=== PATIENT | male | born 1960 | race Caucasian/White ===

== ENCOUNTER 2018-08-22 18:36 | Inpatient (IN) | payer MEDICARE ==
[~2018-08-22] VITALS: Ht 180.3 cm; Wt 112.1 kg
--- NOTE | ~2018-08-22 | EKG ---
[place], [place] ELECTROCARDIOGRAM REPORT NAME: LINDA MARISCAL UNIT #: [id number] ROOM: 402 DOCTOR: HEMANT DRAFT REPORT BIRTHDATE: [birth year] [facility] Test Date: 2018-08-22 Test Time: 20:52:58 Pat Name: LINDA MARISCAL Department: Room: 402 2 Gender: M Nutrition Educator: : 1960 Requested By: CHRISTIANO ORTEGA Order Number: [id number] Reading MD: Quique Smith MD Measurements Intervals [place] Rate: 76 P: 68 AK: 166 QRS: 48 QRSD: 103 T: 50 QT: 397 QTc: 446 Interpretive Statements Sinus rhythm Borderline low voltage, extremity leads Electronically Signed On 08-23-2018 4:12:31 PST by Quique Smith MD CM:EKGRPT:ELECTROCARDIOGRAM REPORT 51 [id number] CHRISTIANO ORTEGA EPIPHANY DRAFT REPORT CHRISTIANO ORTEGA
--- NOTE | ~2018-08-22 | CON ---
[place], [place] REPORT OF CONSULTATION NAME: LINDA MARISCAL UNIT #: [id number] ROOM: 422 DOCTOR: PHD ROHITH DIANA BIRTHDATE: [birth year] DOS: 08/25/2018 HISTORY OF PRESENT ILLNESS: The patient is a 58-year-old male referred by the hospitalist with concerns for altered mental status. The patient is presently on the 4th floor at [facility]. He came to the hospital because he wishes to stop drinking. He was brought by his nurse case manager, Carole, from [facility]. He has been drinking up to 12 beers a day since he was 16. He lives alone and is single and does not have any kids. 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 He drinks about 12 beers per day and smokes half a pack of cigarettes a day and smokes marijuana every few days. PAST MEDICAL HISTORY: Alcoholic cirrhosis, depression, diabetes mellitus, essential hypertension, GERD, hepatitis C, insomnia, Korsakoff syndrome, mild protein-calorie malnutrition, alcohol abuse, tobacco abuse, cannabis abuse. MEDICATIONS: Ativan, Glucophage, Desyrel, Seroquel, Lovenox, Norvasc, Toprol-XL, Cephulac, Abilify, Zoloft, folic acid, thiamine, Theragran, Protonix, Desyrel, Nicotrol inhaler, Zofran, Maalox, Dulcolax, Senokot, Imodium, Motrin, Tylenol, Vistaril, Bentyl, Robaxin, Ativan. The patient was awake, alert and oriented to person. He knew he was in a hospital, but did not know the city. He gave the date as 09/1998. He named Quynh as the current President, Martinez as the prior president and could not name any current events. Mood was stable and affect was blunted. He denied suicidal and homicidal ideation, plan and intent. Speech was slow. Expressive and receptive language appeared within normal limits on the conversational basis. The patient was confused. He was responding to unseen others. Insight and judgment were poor. The patient had trouble recalling recent and remote events. He states that he does want to pursue inpatient alcohol rehab and that he follows up closely with [facility]. I attempted to contact his nurse case manager and the nurse who works with his psychiatrist, but was unable to get in touch with anybody to establish his baseline functioning. In my opinion, the patient would benefit from inpatient alcohol rehab should his mental status improve. Otherwise, he may benefit from increased supervision in a detention facility. DIAGNOSES: Alcohol withdrawal, cannabis use disorder, tobacco use disorder, unspecified depressive disorder, unspecified anxiety disorder. RECOMMENDATIONS: Inpatient alcohol treatment once the patient is medically stable and pending improved mental status. Should his mental status not improve, he would likely benefit from increased supervision and care in a detention facility. Thank you very much for this consult. [place], [place] REPORT OF CONSULTATION NAME: LINDA MARISCAL UNIT #: [id number] ROOM: 422 DOCTOR: ROHITH PHD DIANA BIRTHDATE: [birth year] Prerna Morrison, PhD CM:CONSTR:REPORT OF CONSULTATION 1640 08/26/18 1401 interface
[2018-08-22 18:39] VITALS: BP 154/78
[2018-08-22 18:56] LABS: BASO % 0.6 % (0.0-1.0); EOS # 0.1 10*3/uL (0.0-0.4); EOS % 2.9 % (1.0-4.0); HEMOGLOBIN 12.2 g/dl (14.0-18.0); LYMPH # 1.9 10*3/uL (1.3-4.4); LYMPH % 38.8 % (27.0-41.0); MEAN CELL VOLUME 88.2 fl (80.0-94.0); MEAN CORPUSCULAR HGB 28.3 pg (27.0-31.0); MEAN CORPUSCULAR HGB CONC 32.1 g/dl (33.0-37.0); MEAN PLATELET VOLUME 9.7 fl (9.6-12.3); MONO # 0.5 10*3/uL (0.1-1.0); NEUT # 2.3 10*3/uL (2.3-7.9); NEUT % 47.3 % (47.0-73.0); PLATELET COUNT AUTOMATED 127 10*3/uL (130-400); RED BLOOD COUNT 4.31 10*6/uL (4.50-5.90); RED CELL DISTRI WIDTH 15.8 % (0-14.5); WHITE BLOOD COUNT 4.8 10*3/uL (4.8-10.8)
[2018-08-22 19:10] LABS: ALBUMIN 3.1 gm/dl (3.1-4.5); ALKALINE PHOSPHATASE 88 U/L (45-117); BUN 14 mg/dl (7-24); CHLORIDE 105 mmol/L (98-107); CREATININE 1.12 mg/dL (0.70-1.30); POTASSIUM 3.7 mmol/L (3.5-5.1); SGOT/AST 76 IU/L (3-35); SGPT/ALT 45 U/L (12-78); SODIUM 138 mmol/L (136-145); TOTAL PROTEIN 8.2 gm/dL (6.4-8.2)
[2018-08-22 19:12] LABS: ACETAMINOPHEN (TYLENOL) < 5.0 ug/ml (10-30)
[2018-08-22 19:22] LABS: BILIRUBIN NEGATIVE (NEGATIVE); BLOOD 1+ (NEGATIVE); CLARITY CLEAR (CLEAR); COLOR YELLOW (YELLOW); GLUCOSE NEGATIVE (NEGATIVE); KETONE NEGATIVE (NEGATIVE); LEUKO ESTERASE NEGATIVE (NEGATIVE); NITRITE NEGATIVE (NEGATIVE); SPECIFIC GRAVITY <= 1.005 (1.005-1.030); UROBILINOGEN 0.2 E.U./dl (0.2-1.0)
[2018-08-22 19:30] VITALS: BP 133/79
[2018-08-22 19:30] LABS: URINE AMPHETAMINES < 1000 (1000ng/ml); URINE BARBITURATES < 200 (200ng/ml); URINE BENZODIAZEPINES < 200 (200ng/ml); URINE CANNABINOIDS (THC) > 50 (50ng/ml); URINE COCAINE < 300 (300ng/ml); URINE METHADONE < 300 (300ng/ml); URINE OPIATES < 300 (300ng/ml); URINE PHENCYCLIDINE < 25 (25ng/ml)
[2018-08-22 19:33] LABS: BACTERIA TRACE; WBC 0-2 wbc/hpf (0-5)
[2018-08-22 20:00] VITALS: BP 125/88
--- NOTE | 2018-08-22 20:34 | NUR ---
A 58, admitted to , under the services of AMBROSIO Jacobs DO with a diagnosis of ETOH ABUSE. Chief complaint is NAUSEA AND ANXIETY. Patient arrived via bed from ER. Monitor applied. Initial assessment completed. Vital signs taken and recorded. AMBROSIO JACOBS DO notified of admission to the unit. Orders received. See assessment for past medical history, medications and allergies. Patient and/or family oriented to unit. [facility] visitation policy reviewed. Clothing/patient valuable form completed. VIRGINIA MONDRAGON
[2018-08-22] MEDS ORDERED: GLUCOPHAGE500 M1 PO (23:28)
[2018-08-22] MEDS ORDERED: NALTREXONE50 MG PO (23:29)
[2018-08-22] MEDS ORDERED: ZOLOFT50 MG PO (23:30)
[2018-08-22] MEDS ORDERED: ZOLOFT100 MG PO (23:30)
[2018-08-22] MEDS ORDERED: SEROQUEL400 M1 PO (23:31)
[2018-08-22] MEDS ORDERED: ABILIFY5 MG PO (23:31)
[2018-08-22] MEDS ORDERED: TRAZODONE100 MG PO (23:33)
[2018-08-22] MEDS ORDERED: CONSTULOSE10 GM/151 PO (23:34)
[2018-08-22] MEDS ORDERED: METOPROLOL SUCC50 M1 PO (23:35)
[2018-08-22] MEDS ORDERED: AMLODIPINE BESY10 MG PO (23:36)
[2018-08-22] MEDS ORDERED: PANTOPRAZOLE SO40 MG PO (23:37)
[2018-08-23] VITALS: BP 139/85
[2018-08-23 06:44] LABS: ALBUMIN 2.7 gm/dl (3.1-4.5); ALKALINE PHOSPHATASE 69 U/L (45-117); BUN 13 mg/dl (7-24); CHLORIDE 111 mmol/L (98-107); CREATININE 0.94 mg/dL (0.70-1.30); POTASSIUM 3.9 mmol/L (3.5-5.1); SGOT/AST 57 IU/L (3-35); SGPT/ALT 37 U/L (12-78); SODIUM 141 mmol/L (136-145); TOTAL PROTEIN 6.9 gm/dL (6.4-8.2)
[2018-08-23 06:47] LABS: ACT PARTIAL THROMBO TIME 26.4 SECONDS (20.8-31.5); INTERNATIONAL NORM RATIO 1.1 (2.0-3.5)
--- NOTE | 2018-08-23 07:07 | NUR ---
ATIVAN IV GIVEN FOR DT'S. WILL MONITOR
[2018-08-23 08:00] VITALS: BP 142/82
[2018-08-23 12:00] VITALS: BP 112/55
[2018-08-23 16:00] VITALS: BP 114/56
--- NOTE | 2018-08-23 16:22 | NUR ---
[facility] IN TO FOLLOW UP WITH PATIENT ON REFERRAL OPTIONS. PATIENT ASLEEP AND HARD TO WAKE. [facility] WILL FOLLOW UP WITH PATIENT LATER. LILIAN MEYERS MS REGULATOR PIN INSERTER
--- NOTE | 2018-08-23 18:00 | NUR ---
Patient resting. Responding to scheduled medications with fewer complaints of pain and anxiety.
[2018-08-23 20:00] VITALS: BP 158/94
[2018-08-24] VITALS: BP 146/87
--- NOTE | 2018-08-24 02:45 | NUR ---
MOTRIN GIVEN FOR 8 OUT OF 10 PAIN IN NECK. WILL CONTINUE TO MONITOR AND REASSESS.
--- NOTE | 2018-08-24 03:11 | NUR ---
24 HR chart check completed.
--- NOTE | 2018-08-24 03:30 | NUR ---
MOTRIN EFFECTIVE FOR NECK PAIN. PT SLEEPING COMFORTABLY.
[2018-08-24 08:00] VITALS: BP 140/80
--- NOTE | 2018-08-24 10:23 | NUR ---
C/o anxiety and tremors. Requesting ativan given IV per prn order.
[2018-08-24 12:00] VITALS: BP 152/83
--- NOTE | 2018-08-24 15:12 | NUR ---
PATIENT MEETS [facility]. PATIENT IS GOING TO FOLLOW UP WITH AA MEETINGS. [place] STAFF WILL PROVIDE PATIENT WITH A LIST OF MEETINGS IN HIS AREA. WINNIE MCKEON B.A. [place]
[2018-08-24 16:00] VITALS: BP 140/83
[2018-08-24 20:00] VITALS: BP 133/72
[2018-08-25 06:19] LABS: BASO % 0.4 % (0.0-1.0); EOS # 0.1 10*3/uL (0.0-0.4); EOS % 2.2 % (1.0-4.0); HEMATOCRIT 39.7 % (42.0-52.0); HEMOGLOBIN 12.5 g/dl (14.0-18.0); LYMPH # 1.2 10*3/uL (1.3-4.4); LYMPH % 25.8 % (27.0-41.0); MEAN CORPUSCULAR HGB 27.7 pg (27.0-31.0); MEAN CORPUSCULAR HGB CONC 31.5 g/dl (33.0-37.0); MEAN PLATELET VOLUME 9.6 fl (9.6-12.3); MONO # 0.6 10*3/uL (0.1-1.0); MONO % 12.8 % (3.0-9.0); NEUT # 2.7 10*3/uL (2.3-7.9); NEUT % 58.6 % (47.0-73.0); PLATELET COUNT AUTOMATED 113 10*3/uL (130-400); RED BLOOD COUNT 4.51 10*6/uL (4.50-5.90); RED CELL DISTRI WIDTH 15.9 % (0-14.5); WHITE BLOOD COUNT 4.6 10*3/uL (4.8-10.8)
[2018-08-25 06:44] LABS: CREATININE 0.98 mg/dL (0.70-1.30)
[2018-08-25 07:40] VITALS: BP 110/70
--- NOTE | 2018-08-25 10:35 | NUR ---
Pt up and ambulated in parker at this time. Pt unsteady and instructed to hold onto hand rail on wall. I was on other side of pt to steady him. Ambulated the length of the parker and then back to his room. Pt set up in chair with body alarm intact after walk.
--- NOTE | 2018-08-25 10:45 | NUR ---
Pt was found by staff when they brought ER adm to room 404-2, in room 404-1 laying on bed.
--- NOTE | 2018-08-25 10:50 | NUR ---
Izzy states she will notify physican of pt being found in another room and wandering. I notified Izzy that pt has been hallucinating and has been attempting to get up frequently and that I had walked him and sat him up in the chair with body alarm. Pt had set off body alarm multiple times and this is why I walked him in the parker. Pt also had ativan prior. Notified Izzy that I had asked to move pt closer to nurses station but there were no rooms available for pt.
--- NOTE | 2018-08-25 10:53 | NUR ---
Izzy states she is calling Jaclyn Acevedo regarding pt.
--- NOTE | 2018-08-25 11:19 | NUR ---
Spoke with Zo on U regarding consult.
--- NOTE | 2018-08-25 13:38 | NUR ---
Body alarm going off. Upon entering room, pt is found to be sitting on edge of bed urinating into lid from dinner tray.
[2018-08-25 16:00] VITALS: BP 155/86
--- NOTE | 2018-08-25 16:12 | NUR ---
HUSSEIN JOVEL DISCUSSED AFTERCARE INPATIENT REFERRAL OPTIONS WITH THE PATIENT. PATIENT REPORTS BEING KICKED OUT OF ALL THE REHABS MENTIONED AND BEING PLACED ON "DO NOT READMITT LIST". PATIENT WAS ALSO SEEN POURING A SMALL AMOUNT OF URINE FROM HIS URINAL INTO THE BOWL WITH HIS DENTURES. [facility] STAFF CLEANED THE BOWL AND INFORMED PATIENT THAT THE CONTAINER HE WAS USING WAS NOT WATER. HUSSEIN JOVEL WILL FOLLOW UP WITH PATIENT. LILIAN MEYERS MS COIN MACHINE SUPERVISOR
--- NOTE | 2018-08-25 18:53 | NUR ---
Pt requesting ativan for anxiety. Medicated at this time per prn order.
[2018-08-25 20:00] VITALS: BP 153/90
[2018-08-26] VITALS: BP 148/80
[2018-08-26 06:00] LABS: BASO % 0.4 % (0.0-1.0); EOS # 0.1 10*3/uL (0.0-0.4); EOS % 2.1 % (1.0-4.0); HEMATOCRIT 39.4 % (42.0-52.0); HEMOGLOBIN 12.5 g/dl (14.0-18.0); LYMPH # 1.8 10*3/uL (1.3-4.4); MEAN CELL VOLUME 87.4 fl (80.0-94.0); MEAN CORPUSCULAR HGB 27.7 pg (27.0-31.0); MEAN CORPUSCULAR HGB CONC 31.7 g/dl (33.0-37.0); MEAN PLATELET VOLUME 9.4 fl (9.6-12.3); MONO # 0.7 10*3/uL (0.1-1.0); MONO % 13.8 % (3.0-9.0); NEUT # 2.5 10*3/uL (2.3-7.9); NEUT % 49.5 % (47.0-73.0); PLATELET COUNT AUTOMATED 110 10*3/uL (130-400); RED BLOOD COUNT 4.51 10*6/uL (4.50-5.90); RED CELL DISTRI WIDTH 15.8 % (0-14.5); WHITE BLOOD COUNT 5.1 10*3/uL (4.8-10.8)
[2018-08-26 06:16] LABS: ALBUMIN 2.9 gm/dl (3.1-4.5); ALKALINE PHOSPHATASE 71 U/L (45-117); BUN 12 mg/dl (7-24); CHLORIDE 106 mmol/L (98-107); PHOSPHOROUS 3.4 mg/dL (2.5-4.9); POTASSIUM 3.4 mmol/L (3.5-5.1); SGOT/AST 42 IU/L (3-35); SGPT/ALT 33 U/L (12-78); SODIUM 141 mmol/L (136-145); TOTAL PROTEIN 7.3 gm/dL (6.4-8.2)
--- NOTE | 2018-08-26 07:28 | NUR ---
NOTIFIED DR. SEGOVIA OF CRITICAL LAB VALUE.
[2018-08-26 08:00] VITALS: BP 148/86
--- NOTE | 2018-08-26 08:19 | NUR ---
PATIENT IS PLEASANT AND COOPERATIVE, UNSURE OF WHERE HE IS AT THIS CURRENT TIME BUT IS AWARE OF THE YEAR AND WHO THE PRESIDENT IS. COMPLAINS OF NO PAIN AT THIS CURRENT TIME. WILL CONTINUE TO MONITOR PATIENT THROUGHOUT THE DAY. REGIS CARR
[2018-08-26] MEDS ORDERED: LACTULOSE20 GM/30 M PO (10:59)
--- NOTE | 2018-08-26 11:05 | NUR ---
ADMINISTERED MEDICATIONS, PATIENT TOLERATED WELL. NO COMPLAINTS AT THIS TIME. WILL CONTINUE TO MOITOR PATIENT. REGIS GIVENS SPLEIGHANN
[2018-08-26 12:00] VITALS: BP 154/85
--- NOTE | 2018-08-26 13:14 | NUR ---
IV REMOVED, PATIENT COMPLAINS OF NO PAIN, PATIENT TOLERATED WELL. WITH NO COMPLAINTS AT THIS TIME. REGIS GIVENS SPCC
--- NOTE | 2018-08-26 14:40 | NUR ---
PHYSICAL THERAPY PAtient with possible d/c this date. Beulah Kim,PT
--- NOTE | 2018-08-26 14:43 | NUR ---
Patient may be discharged today. Juli Lindsay OTR/l
--- NOTE | 2018-08-26 14:52 | NUR ---
MSDIS Discharge instructions reviewed with patient/family. Patient receptive and verbalizes understanding. Follow-up care arranged. Written instructions given to patient/family. SHIREEN BARRON
[2018-08-26] MEDS ORDERED: NATURE'S BLEND100 M2 PO (16:53)
[2018-08-26] MEDS ORDERED: MULTIVITAMINS1 EAC5 PO (16:54)
[2018-08-26] MEDS ORDERED: NATURE'S BLEND F1 MG PO (16:54)
== END 2018-08-26 14:52 | disposition home health service (06) | DRG 896 ==
LOC: ED 18:36 → 4E 19:19 → EDHOLD 19:19 → 4E 19:41
PROVIDERS: Internal Medicine; Nurse Practitioner Family; ADMIT Internal Medicine
DX: F10.230 Alcohol dependence with withdrawal, uncomplicated (principal); E43 Unspecified severe protein-calorie malnutrition; E87.2 Acidosis; E11.65 Type 2 diabetes mellitus with hyperglycemia; F32.9 Major depressive disorder, single episode, unspecified; B18.2 Chronic viral hepatitis C; K70.30 Alcoholic cirrhosis of liver without ascites; F04 Amnestic disorder due to known physiological condition; D69.6 Thrombocytopenia, unspecified; D64.9 Anemia, unspecified; R80.9 Proteinuria, unspecified; R31.21 Asymptomatic microscopic hematuria; F17.210 Nicotine dependence, cigarettes, uncomplicated; F12.90 Cannabis use, unspecified, uncomplicated; F41.9 Anxiety disorder, unspecified; E87.8 Other disorders of electrolyte and fluid balance, not elsewhere classified; F10.229 Alcohol dependence with intoxication, unspecified; I10 Essential (primary) hypertension; K21.9 Gastro-esophageal reflux disease without esophagitis; G47.00 Insomnia, unspecified; E66.9 Obesity, unspecified; Z71.6 Tobacco abuse counseling; Z82.3 Family history of stroke; Z80.9 Family history of malignant neoplasm, unspecified; Z79.899 Other long term (current) drug therapy; Z68.34 Body mass index [BMI] 34.0-34.9, adult

== ENCOUNTER 2018-08-26 14:41 | Inpatient (IN) | payer MEDICARE ==
[~2018-08-26] VITALS: Ht 180.3 cm; Wt 112.0 kg
--- NOTE | ~2018-08-26 | PR ---
[place], [place] PROGRESS NOTE NAME: LINDA MARISCAL UNIT #: [id number] ROOM: 315 DOCTOR: ELIZABETH GROSSMAN MD BIRTHDATE: [birth year] DOS: 08/30/2018 CHIEF COMPLAINT: "I feel better today than yesterday. I am not throwing up and I do not have diarrhea." SUMMARY OF THE VISIT: The patient was interviewed as he was resting quietly in bed. He engaged readily in conversation, reporting that he is feeling better both physically and mentally. He is very much set on leaving the hospital and going back to his own apartment. However, Dr. Prerna Morrison, psychologist did deem him incompetent and the patient's own case repairer does fear for his safety because of his significant memory issues and poor judgment. He is impulsive and forgetful, which makes a very bad combination for him living independently. MENTAL STATUS: He is alert and oriented with time gaps. Mood does seem to be trending towards euthymia. Affect is more appropriate. There is no monica, hypomania or psychosis. Memory comes and goes and is spotty. PLAN: I will go ahead and start him on Exelon patch 4.6 mg a day to impact positively on ADLs, behavior and cognition. I will increase his Zyprexa to 5 mg in the morning and 10 mg at night to stabilize his mood, decrease impulsivity and augment the effectiveness of the antidepressant. We will continue to engage in individual and salas milieu activity, returning to the least restrictive environment when psychiatrically stable. ELIZABETH GROSSMAN MD CM:PNTRANS [id number] ELIZABETH GROSSMAN MD 08/30/18 1350 interface
--- NOTE | ~2018-08-26 | DS ---
[place], [place] DISCHARGE SUMMARY NAME: LINDA MARISCAL UNIT #: [id number] ROOM: 315 DOCTOR: ELIZABETH GROSSMAN MD BIRTHDATE: [birth year] DOS: 08/31/2018 CHIEF COMPLAINT: "Hey, I need to speak to you." HISTORY OF PRESENT ILLNESS: This is a 58-year-old white male who was initially admitted to the Medical Unit at [facility]. While there, they found him to be cognitively impaired and also very bizarre. He would wander in and out of other patient's rooms while on the medical floor and was difficult to redirect. They had had caught him urinating in his denture cup and doing other very bizarre behaviors. Because of the severity of his actions and his significant decompensation, it was felt that an inpatient psych stabilization was warranted. SUMMARY OF HOSPITAL COURSE: The patient was admitted to the unit where his ammonia level was found to be markedly elevated. His previous medication regimen that included Seroquel 400 mg a day, Abilify 5 mg a day, trazodone 200 mg at bedtime and Zoloft 150 mg a day was all discontinued due to ineffectiveness. Instead, he was started on Exelon patch 4.6 mg a day to impact positively on his cognition, Remeron 15 mg at bedtime for depression. This was augmented with Zyprexa 10 mg at bedtime and subsequently 5 mg in the morning and 10 mg at bedtime. With this combination of medication, he rapidly improved, mood improved dramatically. He voiced a clearing of his thoughts and was able to carry on a reasonable conversation. He no longer was disoriented. He slept well, he ate well and he attended to his ADLs without any issue. He had improved sufficiently to return back home to continue under the care of [facility] services. MENTAL STATUS AT DISCHARGE: The patient is alert and oriented with some time gaps, but definitely improved. Mood was strongly trending towards euthymia. Affect appropriate. There was no monica, hypomania or psychosis. Short term memory had mild gaps, otherwise he was intact. DISPOSITION: The patient is returning home. His caser up from [facility] is coming to pick him up. His prescriptions have been printed. He will be under the care of [facility] at the time of discharge. At the time of discharge, he was psychiatrically stable and no acute medical issues were present. [place], [place] DISCHARGE SUMMARY NAME: LINDA MARISCAL UNIT #: [id number] ROOM: [facility] DOCTOR: ELIZABETH GROSSMAN MD BIRTHDATE: [birth year] ELIZABETH GROSSMAN MD CM:DISCHARG [id number] ELIZABETH GROSSMAN MD 08/31/18 1145 interface
--- NOTE | ~2018-08-26 | CON ---
[place], [place] REPORT OF CONSULTATION NAME: LINDA MARISCAL UNIT #: [id number] ROOM: 315 DOCTOR: PHD ROHITH DIANA BIRTHDATE: [birth year] DOS: 08/29/2018 HISTORY OF PRESENT ILLNESS: The patient is a 58-year-old male referred by Dr. Khan for competency evaluation. At the present time, the patient is on the Senior Behavioral Health Unit at [place] [facility]. He was placed under a 72-hour hold and brought to the Senior Behavioral Health Unit due to bizarre and impulsive behaviors. He initially presented to the hospital for detox from alcohol. He drinks about 12 beers a day. He lives alone. He is single and does not have any children. 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 He smokes half a pack of cigarettes a day and smokes marijuana. PAST MEDICAL HISTORY: Alcoholic cirrhosis, depression, diabetes mellitus, essential hypertension, GERD, hepatitis C, insomnia, Korsakoff syndrome, mild protein calorie malnutrition, alcohol abuse, tobacco abuse, and cannabis abuse. MEDICATIONS: Zyprexa, Vistaril, Cephulac, vitamin D, Glucophage, folic acid, Theragran, thiamine, Norvasc, Toprol-XL, Nicoderm, Protonix, Remeron, and Geodon. PHYSICAL EXAMINATION: GENERAL: The patient was lying in bed in no apparent distress. NEUROLOGIC: He was awake and oriented to person, place and generally to time. He could name the current President, but cannot recall the past President. He could not name any current events. He could not spell world backwards. Affect was blunted and mood was stable. He firmly denies suicidal and homicidal ideation, plan, and intent. Speech was slow. Thought process was fragmented. He often lost his train of thought and conversation and was easily confused. There was no evidence of hallucinations or delusions. The patient earned a score of 13 on the Jose Cognitive Assessment with an intact score being 26. Mini trails B, cube copy and clock drawing were all impaired. Naming was significant for calling a rhinoceros a hippo. He was able to complete a minimum of 5 digits forward and 3 digits backwards. He made several errors on the test of vigilance and completed one serial 7 subtraction. Language abilities were noteworthy for several errors on the test of repetition and impaired verbal fluency with one word being produced to end in 1 minute. Verbal abstraction was noteworthy for some concreteness. With respect to memory, the patient was able to recall 2/5 words and 4/5 words on immediate recall and 0 words for delayed recall. He was able to recall one word with category cues and two additional words with multiple choice. With respect to judgment, the patient was given several questions taken from the cognistat; he became easily confused with questions and was not able to provide appropriate responses to hypothetical situations. Overall, there is an indication of relative inefficiency and neuropsychological function particularly in the areas of executive functioning, memory, language, and attention. These deficits will negatively affect his ability to live independently. Given his performance, he does not appear to be competent to make informed health care decisions at this time. He would benefit from establishing guardianship. IMPRESSION: Unspecified neurocognitive disorder; major depressive disorder, recurrent, unspecified anxiety disorder, alcohol use disorder. [place], [place] REPORT OF CONSULTATION NAME: LINDA MARISCAL UNIT #: [id number] ROOM: [facility] DOCTOR: ROHITH, PHD DIANA BIRTHDATE: [birth year] RECOMMENDATIONS: The patient would benefit from establishing guardianship. Thank you very much for this consult. Prerna Morrison, PhD CM:CONSTR:REPORT OF CONSULTATION 1634 09/01/18 0818 interface
--- NOTE | ~2018-08-26 | PR ---
[place], [place] PROGRESS NOTE NAME: LINDA MARISCAL UNIT #: [id number] ROOM: 315 DOCTOR: ELIZABETH GROSSMAN MD BIRTHDATE: [birth year] DOS: 08/29/2018 INTERVAL NOTE CHIEF COMPLAINT: "I don't feel too good today." SUMMARY OF THE VISIT: The patient was interviewed as he was resting quietly in bed. He reported to me that he felt nauseous and was also complaining of diarrhea. The diarrhea most likely is from the lactulose. He also complains of persistent mood lability and anxiety. I did tell him I would make some changes with his medicines, so that over the next 24 hours, we can see if they work. MENTAL STATUS: He is alert and oriented with some time gaps. Mood does seem to be trending towards euthymia. Affect is more appropriate. There is no monica or hypomania. There is no gross psychosis. Short-term memory has some gaps. PLAN: I will go ahead and give him Zyprexa 5 mg now. This will be a mood stabilizer that also decreases nausea and vomiting. I will discontinue his Latuda in lieu of Zyprexa 10 mg at bedtime as I do believe this will aid his sleep and augment the effectiveness of his medication regimen. I will increase his Vistaril to 50 mg 3 times a day and also consult Dr. Prerna Morrison, psychologist regarding competency. It does appear that the lactulose is working and that it is causing him diarrhea, so I do not see any reason to increase it at this point despite the fact that his ammonia level is 62. We will defer though to the hospitalist and their input. ELIZABETH GROSSMAN MD CM:PNTRANS [id number] ELIZABETH GROSSMAN MD 08/29/18 1322 interface
[~2018-08-26 14:41] MED LIST: ABILIFY5 MG PO; AMLODIPINE BESY10 MG PO; CONSTULOSE10 GM/151 PO; GLUCOPHAGE500 M1 PO; LACTULOSE20 GM/30 M PO; METOPROLOL SUCC50 M1 PO; NALTREXONE50 MG PO; PANTOPRAZOLE SO40 MG PO; SEROQUEL400 M1 PO; TRAZODONE100 MG PO; ZOLOFT100 MG PO; ZOLOFT50 MG PO
--- NOTE | 2018-08-26 15:07 | NUR ---
case management contacted patient's insurance. spoke to Michelle Caicedo regarding precertification for U stay. clinicals given, patient is approved for 3 days with next review being on Wednesday08/29/18, reference number is [id number],
[2018-08-26 15:08] VITALS: BP 128/83
[2018-08-26 15:32] VITALS: BP 128/83
--- NOTE | 2018-08-26 15:36 | NUR ---
LINDA MARISCAL a 58 year old M admitted via WHEELCHAIR from the 4TH FLOOR as a emergency 72 hr. hold admission. Arrived on unit at 1502. ALLERGIES: NKDA. Vital signs are: 98.5-86-18 128/83 SPO2 96%RA The client signed the following forms with stated understanding: Authorization For The Release of Medical Information, Clothing List, Consent and Release Forms/Receipt of Rights, Acknowledgement of Advance Directive Information, Behavioral Health Consent Form, and Informed Consent of Medications. Admitted under the services of ELIZABETH Bagley MD. A search was conducted and hazardous articles were removed. Client was oriented to the unit. TANIA SOLORIO
--- NOTE | 2018-08-26 15:38 | NUR ---
PHYSICAL THERAPY Nursing screen received. PT orders also received. Thank you. Beulah Kim,PT
[2018-08-26] MEDS ORDERED: NATURE'S BLEND100 M2 PO (16:53)
[2018-08-26] MEDS ORDERED: MULTIVITAMINS1 EAC5 PO (16:54)
[2018-08-26] MEDS ORDERED: NATURE'S BLEND F1 MG PO (16:54)
--- NOTE | 2018-08-26 17:01 | NUR ---
DR. GRANADO UPDATED ON PT ARRIVAL.
--- NOTE | 2018-08-26 17:42 | NUR ---
Obtained consent to collaborate with Catherine. Completed PSA with collateral from his case coordinator who confirmed pt does not have a guardian but she is his rep payee and believes he needs placement for now in a long term. Catherine will call this chart writer with several options of places on Wednesday.
[2018-08-26 20:00] VITALS: BP 158/89
--- NOTE | 2018-08-26 22:30 | NUR ---
P-CONFUSION, ANXIETY. PATIENT WITH SHORT TERM AND HALFWAY MEMORY DEFICITS. PATIENT WITH NO HALLUCINATIONS OR DELUSIONS. PATIENT WITH NO SUICIDAL OR HOMICIDAL IDEATIONS. PATIENT COMPLIANT OF HAVING PERIODS OF ANXIETY. PATIENT UNABLE TO DESCRIBE ANY TRIGGERS OR DESCRIBE HIS FEELINGS FOR ANXIETY. PATIENT STATING "I JUST NEED SOMETHING FOR ANXIETY" I-REDIRECTION WITH 1:1 THERAPEUTIC INTERVENTIONS AND PRESENT REALITY PRESENTATION. EDUCATE AND ENCOURAGE MEDICATION COMPLIANCE. DISCUSS TRIGGERS AND COPING MECHANISM FOR EPISODDES OF ANXIETY/ R-REDIRECTION WITH 1:1 THERAPEUTIC INTERVENTIONS EFFECTIVE FOR SHORT PERIODS OF TIME DUE TO PATIENT COGNITION. PATIENT MEDICATION COMPLIANT. PATIENT WITH BILATERAL HAND TREMORS. PATIENT MEDICATED WITH ATIVAN 1MG PO FOR COMPLAINT OF ANXIETY. ATIVAN WITH SOMEWHAT EFFECTIVE RESULTS. PATIENT WANDERING IN THE HALLWAY INTERMITTENTLY THROUGHOUT SHIFT. PATIENT PROVIDED NOURISHMENT AND FLUIDS. NICOTINE PATCH PLACED TO RIGHT ARM DUE TO PATIENT REQUEST FOR NICOTINE PATCH. PATIENT TO RESUME ROUTINE NICOTINE PATCH ORDERS IN THE AM. PATIENT PREOCCUPIED WITH TAKING ATIVAN. PATIENT STATED "THEY SAID I CAN HAVE IT WHEN I WANT IT. I TAKE IT AT HOME ALL THE TIME". THIS NURSE AND PATIENT REVIEWED MEDICATIONS AT THIS TIME. PATIENT VERBALIZED UNDERSTANDING OF MEDICATIONS, DOSAGES, AND FREQUENCY. P-CONTINUE MEDICATION COMPLIANCE, CONTINUE TO PRESENT REALITY, AND CONTINUE TO ENCOURAGE GROUP THERAPY WHILE AWAKE
--- NOTE | 2018-08-26 23:30 | NUR ---
DR BARRY CALLED TO SEE IF PATIENT'S HOME MEDICATIONS CAN BE CONTINUED. DR. JEAN TO REVIEW MEDICATIONS
--- NOTE | 2018-08-26 23:34 | NUR ---
DR AGUIRRE CALLED TO INFORM THAT THERE WAS NO CURRENT ORDER FOR A PHYSICIAN TO CONSULT PATIENT. THIS NURSE TO PUT IN ORDER
--- NOTE | 2018-08-26 23:38 | NUR ---
PATIENT PLACED UNDER [facility]NAG[facility]
--- NOTE | 2018-08-27 00:36 | NUR ---
24 HR chart check completed.
--- NOTE | 2018-08-27 00:40 | NUR ---
DR ORTEGA ON THE UNIT TO SEE PATIENT
--- NOTE | 2018-08-27 01:54 | NUR ---
PATIENT WITH ORDER TO GIVE KCL 40MEQ X 1. THIS NURSE TOOK MEDICATION TO PATIENT AND PATIENT STATED "I DON'T SEE MY ATIVAN IN HERE". PATIENT UNABLE TO DESCRIBE ANY TRIGGERS FOR ANXIETY. PATIENT STATING "I JUST NEED IT, DON'T YOU THINK". PATIENT WITH BILATERAL HAND TREMORS, BUT IS RESTING CALMLY IN BED. THIS NURSE MEDICATED PATIENT WITH ATIVAN 1MG PO AT PATIENT REQUEST. MEDICATION WITH SOMEWHAT EFFECTIVE RESULTS AT THIS TIME
--- NOTE | 2018-08-27 05:31 | NUR ---
PATIENT SLEPT 4-5 HOURS INTERRUPTED THROUGHOUT SHIFT. Q 15 MINUTE CHECKS MAINTAINED
[2018-08-27 07:17] VITALS: BP 137/82
[2018-08-27 08:05] LABS: BUN 13 mg/dl (7-24); CHLORIDE 107 mmol/L (98-107); CHOLESTEROL 126 mg/dL (<200); CREATININE 1.09 mg/dL (0.70-1.30); POTASSIUM 3.9 mmol/L (3.5-5.1); SODIUM 141 mmol/L (136-145); TRIGLYCERIDES 120 mg/dl (<150); VLDL CHOLESTEROL 24 mg/dL (6-40)
[2018-08-27 08:06] LABS: HDL CHOLESTEROL 38 mg/dl (40-60); LDL CHOLESTEROL 64 mg/dL (9-159)
[2018-08-27 09:11] LABS: VITAMIN D, 25-HYDROXY 21.7 ng/mL (30-100)
--- NOTE | 2018-08-27 11:49 | NUR ---
AM GROUP/EXERCISES/STORY PT ATTENDED AND PARTICIPATED IN ALL GROUP ACTIVITIES. PT DID STATE "I DON'T COLOR BECAUSE IT'S JUVENILE" THIS STAFF EXPLAINED BENEFITS OF ART ACTIVITY'S. PT OPEN-MINDED TO NEW THINGS. PT OFTEN ASKED ABOUT WHEN DRWesley OR BUSINESS ASSOCIATE WOULD VISIT TO DISCUSS MEDICATIONS. PT VISITED BY BUSINESS ASSOCIATE DURING GROUP, PT EXPRESSES RELIEF. PT DID NOT EXPRESS ANY DEPRESSIVE THOUGHTS AT THIS TIME. PT WILL CONTINUE TO ATTEND AND PARTICIPATE IN FUTURE GROUP SESSIONS.
--- NOTE | 2018-08-27 12:35 | NUR ---
PATIENT REPORTS BEING ANXIOUS. PRN ATIVAN 1MG GIVEN PO AT THIS TIME.
--- NOTE | 2018-08-27 13:35 | NUR ---
ASKED PATIENT IF ATIVAN HELPED. PATIENT STATED "YES, I SLEPT FOR AWHILE" PRN ATIVAN EFFECTIVE.
--- NOTE | 2018-08-27 15:11 | NUR ---
Shift chart check completed.
--- NOTE | 2018-08-27 18:19 | NUR ---
PATIENT IS ALERT AND ORIENT TO PERSON, PLACE AND SITUATION WITH SLIGHT CONFUSION; ABLE TO VOICE NEEDS. MOOD IS DEPRESSED. PREOCCUPIED WHEN MEDICATIONS ARE DUE. ORAGNIZED AND GOAL DIRECTED. DENIES ANY HALLUCINATIONS, DELUSIONS, HI/SI OR PAIN. MEDICATION COMPLAINT WITH EDUCATION PROIVDED. Q 15 MINUTE SAFETY CHECKS MAINTAINED. INTERACTIVE WITH STAFF AND OTHER PATIENTS. ONE ON ONE WITH PATIENT REGARDING MEDICATION AND DIAGNOSIS. EDUCATIONAL MATERIAL PROVIDED FOR PATIENT. INDEPEDENT WITH ACTIVITIES OF DAILY LIVING, CONTINENT OF BOWEL AND BLADDER. SET UP FOR MEALS, INTAKES ARE GOOD WITH ADEQUATE FLUIDS. CONTINUE TO MONITOR FOR WANDERING INTO OTHER'S ROOMS (BEING INTRUSIVE) AND INAPPROPIATE BEHAVIORS. CONTINUE TO PROVIDE ONE ON ONE AND REDIRECTION NEEDED.
[2018-08-27 20:00] VITALS: BP 147/86
--- NOTE | 2018-08-27 22:00 | NUR ---
P-CONFUSION, ANXIETY. PATIENT WITH SHORT TERM AND LONGTERM MEMORY DEFICITS. PATIENT WITH NO HALLUCINATIONS OR DELUSIONS. PATIENT WITH NO SUICIDAL OR HOMICIDAL IDEATIONS. PATIENT COMPLIANT OF HAVING PERIODS OF ANXIETY. THIS NURSE ASKED PATIENT TO DESCRIBE WHAT HE IS FEELING AND PATIENT STATED "I FEEL A LITTLE SHAKY AND HOT AND COLD SOMETIMES. THIS NURSE ASKED PATIENT TO EXPLAIN HIS HOT AND COLD SYMPTOMS. PATIENT STATED "I DON'T KNOW, I'M JUST TENSE". I-REDIRECTION WITH 1:1 THERAPEUTIC INTERVENTIONS AND PRESENT REALITY ORIENTATION. EDUCATE AND ENCOURAGE MEDICATION COMPLIANCE. DISCUSS TRIGGERS AND COPING MECHANISM FOR EPISODDES OF ANXIETY. R-REDIRECTION WITH 1:1 THERAPEUTIC INTERVENTIONS EFFECTIVE FOR SHORT PERIODS OF TIME DUE TO PATIENT MEMORY DEFICITS. PATIENT MEDICATION COMPLIANT. PATIENT WITH BILATERAL HAND TREMORS. PATIENT MEDICATED WITH ATIVAN 1MG PO AT PATIENT REQUEST. ATIVAN WITH SOMEWHAT EFFECTIVE RESULTS AT THIS TIME. PATIENT LOOKING OUT OF DOORWAY INTERMITTENTLY THROUGHOUT THE SHIFT. PATIENT PROVIDED NOURISHMENT AND FLUIDS. PATIENT QUESTIONED FREQUENCY OF NICOTINE PATCH. PATIENT PREOCUPPIED WITH MEDICATIONS AND STATING "I THOUGHT I WAS SUPPOSED TO START ON LIBRIUM". THIS NURSE REMINDED PATIENT OF HIS MEDICATIONS AND THAT LIBRIUM WAS NOT ORDERED. THIS NURSE AND PATIENT REVIEWED. PATIENT VERBALIZED UNDERSTANDING OF MEDICATIONS, DOSAGES, AND FREQUENCY. PATIENT AMBULATORY ON UNIT WITH STEADY GAIT. PATIENT CONTINENT OF BOWEL AND BLADDER. PATIENT WITH GOOD APPETITE. P-CONTINUE MEDICATION COMPLIANCE, CONTINUE TO PRESENT REALITY, AND CONTINUE TO ENCOURAGE GROUP THERAPY WHILE AWAKE
--- NOTE | 2018-08-28 02:58 | NUR ---
24 HR chart check completed.
--- NOTE | 2018-08-28 06:34 | NUR ---
PT SLEPT APPXOXIMATELY 8 HOURS THIS SHIFT. DAMAOS CHAIR. REDIRECTABLE AT TIMES.
[2018-08-28 07:11] VITALS: BP 135/89
--- NOTE | 2018-08-28 12:17 | NUR ---
DR. ALTAMIRANO ON UNIT TO ASSESS PATIENT.
--- NOTE | 2018-08-28 13:32 | NUR ---
PATIENT IS ALERT AND ORIENTED TO PERSON, PLACE AND SITUATION; UNABLE TO RECALL TIME. ABLE TO VOICE NEEDS. MOOD IS STABLE, ORGANIZED AND GOAL DIRECTED. PREOCCUPIED WITH MEDICATIONS. DENIES ANY HALLUCINATIONS, DELUSIONS, HI/SI OR PAIN. PATIENT INTERACTIVE WITH STAFF AND OTHER PATIENTS. INDEPENDENT WITH ACTIVITIES OF DAILY LIVING, CONTINENT OF BOWEL AND BLADDER. SET UP FOR MEALS, INTAKE ARE GOOD WITH ADEQUATE FLUIDS. MEDICATION COMPLAINT WITH EDUATION PROVIDED. Q 15 MINUTE SAFETY CHECKS MAINTAINED. CONTINENT TO MONITOR FOR WANDERING AND INAPPROPRIATE BEHAVIORS. PROIVDE ONE ON ONE AND REDIRECTION NEEDED.
--- NOTE | 2018-08-28 16:02 | NUR ---
PM GROUP/MUSIC/LEISURE SKILLS PT ATTENDED AND PARTICIPATED IN GROUP AND REMAINED PLEASANT AND ON TASK. PT INTERACTING WITH THIS STAFF AND PEERS AND AGREED TO TRY COLORING WHICH IS AN ACTIVITY PT DID NOT WANT TO DO, BUT PT DID COLOR DUE TO CONTENT (A BEATLE'S PICTURE) PT STATES "I CAN COLOR THIS AND FRAME IT" PT ALSO ENJOYED TRIVIA ON THE BEATLES. PT DID NOT BECOME AGITATED OR HOPELESS AT THIS TIME. PT WILL CONTINUE TO ATTEND AND PARTICIPATE IN FUTURE GROUP ACTIVITIES.
[2018-08-28 20:00] VITALS: BP 140/80
--- NOTE | 2018-08-28 21:31 | NUR ---
P-CONFUSION, ISOLATIVE AND WITHDRAWN. PATIENT WITH SHORT TERM AND ON AIR DIRECTOR MEMORY DEFICITS. PATIENT WITH NO HALLUCINATIONS OR DELUSIONS. PATIENT WITH NO SUICIDAL OR HOMICIDAL IDEATIONS. PATIENT DENIES PERIODS OF ANXIETY AT THIS TIME. I-REDIRECTION WITH 1:1 THERAPEUTIC INTERVENTIONS AND PRESENT REALITY ORIENTATION. EDUCATE AND ENCOURAGE MEDICATION COMPLIANCE. R-REDIRECTION WITH 1:1 THERAPEUTIC INTERVENTIONS EFFECTIVE FOR SHORT PERIODS OF TIME DUE TO PATIENT MEMORY DEFICITS. PATIENT MEDICATION COMPLIANT. PATIENT WITH BILATERAL HAND TREMORS. PATIENT LOOKING OUT THE OF DOORWAY AND WANDERING IN THE HALLWAY INTERMITTENTLY THROUGHOUT THE SHIFT. PATIENT PROVIDED NOURISHMENT AND FLUIDS. PATIENT IS AMBULATORY ON UNIT WITH STEADY GAIT. PATIENT CONTINENT OF BOWEL AND BLADDER. PATIENT WITH GOOD APPETITE. P-CONTINUE MEDICATION COMPLIANCE, CONTINUE TO PRESENT REALITY, AND CONTINUE TO ENCOURAGE GROUP THERAPY WHILE AWAKE
--- NOTE | 2018-08-29 00:32 | NUR ---
24 HR chart check completed.
--- NOTE | 2018-08-29 05:51 | NUR ---
PATIENT SLEPT 3-4 HOURS OF INTERRUPTED SLEEP THROUGHOUT SHIFT. Q 15 MINUTE CHECKS MAINTAINED
[2018-08-29 07:47] VITALS: BP 152/74
--- NOTE | 2018-08-29 08:15 | NUR ---
Treatment Plan meeting with Dr. Khan, RN, AT, SW and Cylinder Filler. Plan for discharge at the end of the week. Pt. currently at home.
--- NOTE | 2018-08-29 08:27 | NUR ---
SPOKE WITH WINNIE IN DR. NEWBERRY'S OFFICE RE:CONSULT NEEDED FOR COMPETANCY.
--- NOTE | 2018-08-29 08:38 | NUR ---
PATIENT IS ALERT AND ORIENTED TO PERSON, PLACE AND SITUATION; OFF ON RECALLING DAY OF WEEK, AWARE OF MONTH AND YEAR. PATIENT HAS MEMEORY GAPS. MOOD IS STABLE. DENIES ANY HALLUCINATIONS, DELUSIONS, HI/SI OR PAIN. ORGANIZED AND GOAL DIRECTED. PATIENT STATES "I'M READY TO GET OUT OF HERE, I HAVE A CAT TO TAKE CARE OF, MY NEIGHBOR IS TAKING CARE OF MY CAT RIGHT NOW" MEDICATION COMPLAINT WITH EDUCATION PROVIDED. PATIENT COMPLAINING OF STOMACH BEING QUEASY, PATIENT CURRENTLY ON LACTULOSE, AMMMONIA LEVEL THIS MORNING IS 62. DR. GROSSMAN ON UNIT AND NOTIFIED OF LAB LEVELS. PATIENT IS INDEPENDENT WITH ACTIVITIES OF DAILY LIVING, CONTINENT OF BOWEL AND BLADDER. SET UP FOR MEALS, PATIENT DID NOT EAT BREAKFAST DUE TO UPSET STOMACH, PATIENT DID DRINK ALL BEVERAGES ON TRAY. PATIENT AMBULATORY WITH STEADY GAIT. MEDICATION COMPLAINT WITH EDUCATION PROVIDED. Q 15 MINUTE SAFETY CHECKS MAINTAINED. PATIENT SIGNED VOLUNTARY CONSENT FORM THIS MORNING. PATIENT STATES "I HOPE I GET DISCHARGED TOMMARROW" PATIENT RESTING IN BED WITH EYES CLOSED. CONTINUE TO MONITOR FOR WANDERING AND INAPPROPRIATE BEHAVIORS. PROVIDE ONE ON ONE NEEDED
--- NOTE | 2018-08-29 08:42 | NUR ---
Nursing screen and Occupational Therapy referral received. Thank you. Juli Lindsay OTR/l
--- NOTE | 2018-08-29 10:30 | NUR ---
DR. MACEDO ON UNIT TO ASSESS PATIENT.
--- NOTE | 2018-08-29 11:49 | NUR ---
AM GROUP/EXERCISE AND BIRDHOUSES PT CAME INTO GROUP LATE, ASKED WHAT WE WERE DOING, CHOSE NOT TO PARTICIPATE AND THEN LEFT THE DAY ROOM. PT DID NOT RETURN.
--- NOTE | 2018-08-29 15:41 | NUR ---
PM GROUP/MUSIC/LEISURE SKILLS PT ATTENDED PART WAY THROUGH GROUP PT STATES "I SLEPT TERRIBLE LAST NIGHT I WAS UP WITH DIARHHEA ALL NIGHT" THIS STAFF ASSITED PT IN BEGINNING ACTIVITY. PT PARTICIPATED AND WAS PLEASANT THE REST OF GROUP. PT WILL OCNTINUE TO ATTEND AND PARTICIPATE DURING FUTURE GROUP SESSIONS.
[2018-08-29 20:00] VITALS: BP 151/72
--- NOTE | 2018-08-29 20:17 | NUR ---
24 HR chart check completed.
--- NOTE | 2018-08-29 22:37 | NUR ---
A&O TO PERSON, AND SITUATION. APPROXIMATE PLACE. PT KNOWS HE IS IN THE HOSPITAL, HOWEVER, UNABLE TO SPECIFY WHICH HOSPITAL. STABLE MOOD. GOAL DIRECTED. INTERACTIVE WITH STAFF AND PEERS. NO HALLUCINATIONS OR DELUSIONS NOTED. NO SI/HI NOTED. MEDICATION COMPLIANT WITHOUT DIFFICULTY. MEDICATION EDUCATION PROVIDED. Q15 MINUTES SAFETY CHECKS MAINTAINED. SEE [facility] FLOWSHEET FOR SPECIFIC MONITORING.
--- NOTE | 2018-08-30 05:47 | NUR ---
PT SLEPT APPROXIMATELY 5 HOURS THISS HIFT WITH 2 AWAKENINGS. Q15 MINUTE SAFETY CHECKS MAINTAINED.
[2018-08-30 07:16] VITALS: BP 128/85
--- NOTE | 2018-08-30 08:15 | NUR ---
Treatment Plan meeting with Dr. Khan, RN, AT, SW and Electrocardiographic Technician. Plan for discharge at the end of the week.
--- NOTE | 2018-08-30 08:41 | NUR ---
PT AWAKE, ALERT, ATE BREAKFAST INDEPENDENTLY. ON UNIT TO SEE PT AT THIS TIME, UPDATE GIVEN.
--- NOTE | 2018-08-30 11:31 | NUR ---
case management received a call from [facility], patient's U stay is approved with next review being 08/31/18, authorization number is [id number]
--- NOTE | 2018-08-30 11:39 | NUR ---
PHYSICAL THERAPY PAtient 100 % (I) with all mobility inlcuding shower. No PT needs. D/c PT. Thank you for this referral. Beulah Kim,PT
--- NOTE | 2018-08-30 11:41 | NUR ---
Patient independent in all ADls and functional mobility on the senior behavioral health unit as witnessed by staff. No further OT indicated on an inpatient basis. See psychiatrists notes for cognitive assessment. Juli Lindsay Otr/L
--- NOTE | 2018-08-30 12:41 | NUR ---
Referral to [facility] faxed. Will follow.
--- NOTE | 2018-08-30 14:30 | NUR ---
Call received from Catherine Pt. Animal Bounty Hunter at [facility]. Pt. does not qualify for [facility]. Catherine States that patient will discharge home and she will continue process for Guardianship for patient once he is home. She will follow patient daily in his home and take him to his appointments which she is in the prcocess of doing at this time and will notify special events planner of appointments once scheduled. Advised Catherine of concerns expressed by Dr. Khan of Pt. use of the stove in his apartment. Pt. is not permitted to use the stove in his apartment due to a previous incident in the apartment. At this time he uses his microwave and convenience foods. Animal Bounty Hunter to transport patient home with brain picker time 12:30 Wednesday. Notified Tammy REDMOND on U unit.
--- NOTE | 2018-08-30 17:15 | NUR ---
Met and reviewed discharge plan and collaborated with estate planner and nurse outreach case manager-Catherine from [facility] as well as faxed emergency guardianship ppwk to her for filing. Offered pt support and encouragement and discussed the critical nature of his addiction issues and pt stated he intends to stop drinking.
--- NOTE | 2018-08-30 18:36 | NUR ---
P: ISOLATIVE AT TIMES. STABLE MOOD, PT STATES HE IS READY TO GO HOME TOMORROW. I: ORIENTATION, MOOD AND BEHAVIOR ASSESSED. ASSESSED PT FOR SI/HI, INTENT OR PLAN. ASSESSED FOR S/S HALLUCINATIONS, PARANOIA AND/OR DELUSIONS. MEDICATIONS ADMINISTERED PER PHYSICIAN'S ORDERS. ENCOURAGED PT TO ATTEND AND PARTICIPATE IN [facility] GROUPS AND ACTIVITIES. R: PT IS ALERT AND ORIENTED TO PERSON, PLACE AND TIME. RESPS EASY AND EVEN ON ROOM AIR. MOOD IS STABLE THIS SHIFT, AFFECT APPROPRIATE. PT DENIES SI/HI, INTENT OR PLAN. PT DENIES HALLUCINATIONS, NO RESPONSE TO INTERNAL STIMULI NOTED. NO PARANOIA/DELUSIONS NOTED. PT IS MEDICATION COMPLIANT WITHOUT DIFFICULTY. PT OFFERS NO COMPLAINTS. INDEPENDENT WITH ADLS. ISOLATIVE AT TIMES BUT HAS BEEN LESS ISOLATIVE THIS EVENING, CAME OUT AND WATCHED TV AND INTERACTED APPROPRIATELY WITH PEERS AROUND DINNER TIME. P: PLAN TO CONTINUE CURRENT TX, CONTINUE TO MONITOR MOOD AND BEHAVIORS AND PROVIDE APPROPRIATE REORIENTATION, REDIRECTION AND 1:1 NEEDED. CONTINUE TO ENCOURAGE MEDICATION COMPLIANCE WELL GROUP ATTENDANCE AND PARTICIPATION.
[2018-08-30 20:42] VITALS: BP 136/82
--- NOTE | 2018-08-30 22:33 | NUR ---
PATIENT ALERT AND ORIENTED X4. MOOD STABLE. PT CALM AND COOPERATIVE. PT SAT IN DINING ROOM FOR HS SNACK AND WATCHED TV, REMAINS MILDY ISOLATIVE, INTERACTIVE WHEN PROMPTED. DURING 1:1 PATIENT WAS PLEASANT UPON APPROACH, STATED "I THINK I GET TO GO HOME TOMORROW, LOOKING FORWARD TO IT". PT DENIES SI/HI AND HALLUCINATIONS, NO NOTED RESPONDING TO INTERNAL STIMULI. NO PARANOIA/DELUSIONS OBSERVED. MEDICATION COMPLIANT WITHOUT DIFFICULTY, RECEPTIVE TO MEDICATION EDUCATION WITH POSITIVE FEEDBACK. NO PHYSICAL COMPLAINTS VOICED. PATIENT CURRENTLY LAYING DOWN WITH EYES CLOSED. RESPIRATIONS EASY AND REGULAR, NO SIGNS OR SYMPTOM OF DISTRESS NOTED.
--- NOTE | 2018-08-31 03:47 | NUR ---
24 HOUR CHART CHECK COMPLETED.
--- NOTE | 2018-08-31 06:25 | NUR ---
PATIENT OBSERVED ON Q 15 MIN CHECKS TO HAVE SLEPT >7 HOURS WITH NO AWAKENINGS OR SIGNS AND SYMPTOMS OF DISTRESS NOTED.
[2018-08-31 07:19] VITALS: BP 128/68
[2018-08-31] MEDS ORDERED: VITAMIN D32000 UNI1 PO (07:57)
[2018-08-31] MEDS ORDERED: LACTULOSE20 GM/30 M PO (07:57)
--- NOTE | 2018-08-31 08:00 | NUR ---
ON UNIT TO SEE PT AT THIS TIME, UPDATE GIVEN, MADE AWARE OF DISCHARGE SCHEDULED FOR TODAY.
[2018-08-31] MEDS ORDERED: MIRTAZAPINE15 M2 PO (09:22)
[2018-08-31] MEDS ORDERED: RIVASTIGMINE1 EACH T (09:22)
[2018-08-31] MEDS ORDERED: OLANZAPINE5 MG PO (09:22)
[2018-08-31] MEDS ORDERED: OLANZAPINE10 MG PO (09:22)
[2018-08-31] MEDS ORDERED: HYDROXYZINE PAM25 M1 PO (09:22)
--- NOTE | 2018-08-31 10:32 | NUR ---
Called Olga to inquire about the aftercare appts and she said she will provide to this database report writer after she arrives to the office probably by 11am. Called Suraj Hwang about the AA list and their aftercare plan for pt when he was on the medical floor. Obtained AA list from Suraj Hwang and provided to the pt.
--- NOTE | 2018-08-31 11:39 | NUR ---
AM GROUP/REMINISCING PT ATTENDED AND PARTICIPATED IN GROUP BY DISCUSSING CHILDHOOD PETS. PT ENGAGED IN CONVERSATION WITH PEERS AND EXHIBITED NO SIGNS OF AGITATION NOR EXPRESSED ANY HALLUCINATIONS. PT IS SET TO BE DISCHARGED THIS AFTERNOON.
--- NOTE | 2018-08-31 12:10 | NUR ---
Call placed to [employer] Catherine who states that she is unable to transport client. Advised of No voucher program for taxi service. Catherine states that she cannot make calls to tranportation via ub[employer] and taxi even though she is designated payee for patient. Advised that cap lining machine operator could call for dupree quote for taxi service and she agreed. Call placed to [facility]. Round Trip $120.00 flat fee. Call placed back to Catherine to notify her and she states that is fine "I shan have no choice in the matter". Advised that patient does not meet medical criteria for ambulance to transport. Call back to [facility] and they will transport patient to his apartment and meet the patient case manager to exchange payment. Pt. is aware and has agreed. Provided [facility] with Catherine the [employer] phone number .
--- NOTE | 2018-08-31 12:59 | NUR ---
P: STABLE MOOD, INTERACTIVE WITH STAFF AND PEERS. PT VOICING READINESS FOR DISCHARGE. I: ORIENTATION, MOOD AND BEHAVIOR ASSESSED. ASSESSED PT FOR SI/HI, INTENT OR PLAN. ASSESSED PT FOR S/S HALLUCINATIONS, PARANOIA AND/OR DELUSIONS. MEDICATIONS ADMINISTERED PER PHYSICIANS ORDERS. MEDICATION EDUCATION PROVIDED. ENCOURAGED PT TO ATTEND AND PARTICIPATE IN [facility] GROUPS AND ACTIVITIES. R: PT IS A+OX4. MEMORY APPEARS INTACT. RESPS EASY AND EVEN ON ROOM AIR. MOOD IS STABLE, AFFECT APPROPRIATE. SPEECH IS WNL AND COHERENT, ABLE TO MAKE NEEDS KNOWN WITHOUT DIFFICULTY. PT DENIES SI/HI, INTENT OR PLAN. PT DENIES HALLUCINATIONS, NO RESPONSE TO INTERNAL STIMULI NOTED. NO PARANOIA/DELUSIONS NOTED. PT IS CALM, PLEASANT AND COOPERATIVE. INTERACTIVE WITH STAFF AND PEERS. P: PLAN TO CONTINUE CURRENT TX: CONTINUE TO ASSIST PT IN PREPARING FOR DISCHARGE HOME THIS DATE.
--- NOTE | 2018-08-31 13:01 | NUR ---
ALL DISCHARGE INSTRUCTIONS REVIEWED WITH PT WITH PT'S STATED UNDERSTANDING OF ALL. ALL QUESTIONS ANSWERED. COPIES OF ALL DISCHARGE INFORMATION PREPARED FOR PT. SCRIPTS SENT WITH PT. PT STATES HE WILL TAKE THEM TO HIS PHARMACY TO BE FILLED.
--- NOTE | 2018-08-31 14:20 | NUR ---
PT DISCHARGED AT THIS TIME TO HOME VIA [facility]. DISCHARGE INSTRUCTIONS AND PRESCRIPTIONS WERE SENT WITH THE PT. ALL PERSONAL BELONGINGS WERE SENT WITH THE PT. PT LEFT THE UNIT IN STABLE CONDITION AT 1420.
== END 2018-08-31 14:20 | disposition home health service (06) | DRG 885 ==
LOC: 3N 14:41
PROVIDERS: ADMIT Psychiatry & Neurology Psychiatry
DX: F33.2 Major depressive disorder, recurrent severe without psychotic features (principal); G93.41 Metabolic encephalopathy; E43 Unspecified severe protein-calorie malnutrition; E72.20 Disorder of urea cycle metabolism, unspecified; E87.6 Hypokalemia; F04 Amnestic disorder due to known physiological condition; G47.00 Insomnia, unspecified; F10.20 Alcohol dependence, uncomplicated; Y90.9 Presence of alcohol in blood, level not specified; R31.21 Asymptomatic microscopic hematuria; R41.9 Unspecified symptoms and signs involving cognitive functions and awareness; D64.9 Anemia, unspecified; K70.31 Alcoholic cirrhosis of liver with ascites; D69.6 Thrombocytopenia, unspecified; F17.200 Nicotine dependence, unspecified, uncomplicated; E66.9 Obesity, unspecified; E11.65 Type 2 diabetes mellitus with hyperglycemia; I10 Essential (primary) hypertension; K21.9 Gastro-esophageal reflux disease without esophagitis; K70.30 Alcoholic cirrhosis of liver without ascites; Z68.34 Body mass index [BMI] 34.0-34.9, adult; Z71.6 Tobacco abuse counseling; Z82.3 Family history of stroke; Z79.84 Long term (current) use of oral hypoglycemic drugs; Z79.899 Other long term (current) drug therapy